=== PATIENT | male | born 1965 | race Caucasian/White ===

== ENCOUNTER 2024-05-19 11:21 | Emergency (ER) | payer SELFPAY ==
[2024-05-19 11:42] VITALS: BP 123/75; PULSE 98; RESP 18; TEMP 97.7; BMI 23.3
[2024-05-19 12:48] LABS: THROAT:GRP A STREP NOT DETECTED (NOTDETECTED)
== END 2024-05-19 14:00 | disposition home or self-care (01) ==
LOC: JERFT 11:21
DX: U07.1 COVID-19 (principal); R09.81 Nasal congestion; J02.9 Acute pharyngitis, unspecified
CPT/HCPCS: 0241U-QW; 87651; 99283-25